=== PATIENT | female | born 1940 | race Two or more races ===

== ENCOUNTER 2022-03-05 19:27 | Outpatient (CLI) | payer MEDICARE, OTHER | END 2022-03-05 19:28 | disposition critical access hospital (66) | LOC: EMS 19:27 | DX: R06.02 Shortness of breath (principal); R07.89 Other chest pain; R10.812 Left upper quadrant abdominal tenderness | CPT/HCPCS: A0425; A0427 ==

== ENCOUNTER 2022-03-05 19:45 | Inpatient (IN) | payer MEDICARE, OTHER ==
--- NOTE | 2022-03-05 20:36 | ED Physician Documentation ---
PD HPI CHEST PAIN - Stated complaint Stated Complaint: SOA/CHEST TIGHTNESS - Chief complaint Chief Complaint: Cardiac - History obtained from History obtained from: Patient - Additional information Additional information: Patient is an 82-year-old female with a history significant for dementia, GERD,Peripheral neuropathy presenting for evaluation of midsternal chest pressure that started at dinnertime at 530. History is obtained from patient as well as daughter as patient is not entirely reliable given her history of dementia. Per the daughter, patient was sitting at the dinner table when she s tarted complaining of pain in the middle of her chest. She appeared to have shallow breathing at the time. As she had never had similar episodes, they called 911. She was given a sublingual nitro with resolution of her pain. Per the patient and her daughter, she was doing well earlier today with no recent episodes of chest pain, difficulty breathing, coughing, fever. No increase in leg swelling.No history of hypertension, diabetes or hyperlipidemia, known coronary artery disease. Review of Systems Constitutional: denies: Fever Nose: denies: Congestion Cardiac: reports: Chest pain / pressure. denies: Palpitations Respiratory: reports: Dyspnea. denies: Cough GI: denies: Abdominal Pain, Vomiting, Constipation, Diarrhea : denies: Dysuria Skin: denies: Rash Musculoskeletal: denies: Back pain Neurologic: denies: Syncope PD PAST MEDICAL HISTORY - Allergies Allergies/Adverse Reactions: Allergies Allergy/AdvReac Type Severity Reaction Status Date / Time aspirin Allergy Anaphylaxis Verified 03/05/22 19:51 PD ED PE NORMAL - General General: No acute distress, Well developed/nourished - HEENT HEENT: Atraumatic, Moist mucous membranes - Neck Neck: Supple, no meningeal sign - Cardiac Cardiac: No murmur, Strong equal pulses, Other (Tachycardic,Irregularly irregular) - Respiratory Respiratory: No respiratory distress, Clear bilaterally - Abdomen Abdomen: Normal bowel sounds, Soft, Non distended, Other (Mild epigastric tenderness) - Derm Derm: Normal color, No rash - Extremities Extremities: No calf tenderness / cord - Neuro Neuro: Normal speech - Psych Psych: Normal mood Results - Vitals Vitals: Vital Signs - 24 hr 03/05/22 03/05/22 03/05/22 19:51 20:06 21:12 Temperature 36.5 C Heart Rate 115 H 104 H 94 Respiratory 22 22 24 Rate Blood Pressure 134/71 H 112/78 107/68 O2 Saturation 93 91 L 95 03/05/22 03/05/22 23:00 23:19 Temperature Heart Rate 90 105 H Respiratory 24 24 Rate Blood Pressure 143/99 H 143/99 H O2 Saturation 96 92 Oxygen O2 Source Nasal cannula - EKG (time done) 2001 Rate: Rate (enter#) (104) Rhythm: Atrial fibrillation [place]: Normal Ischemia: No: ST elevation c/w ischemia Other comments: Other comments Compare to prior EKG: Old EKG unavailable - Labs Labs: Laboratory Tests 03/05/22 03/05/22 03/05/22 20:34 20:34 20:34 WBC 7.3 RBC 3.89 L Hgb 11.6 L Hct 35.8 L MCV 92.0 MCH 29.8 MCHC 32.4 RDW 13.6 Plt Count 272 MPV 8.8 Neut # (Auto) 4.9 Lymph # (Auto) 1.5 [place] # (Auto) 0.7 Eos # (Auto) 0.2 Baso # (Auto) 0.0 Absolute Nucleated RBC 0.00 Nucleated RBC % 0.0 APTT D-Dimer Sodium 141 Potassium 3.9 Chloride 106 Carbon Dioxide 26 Anion Gap 9.0 BUN 24 H Creatinine 1.0 Estimated GFR (MDRD) 53 L Glucose 121 H Calcium 8.9 Total Bilirubin 0.3 AST 20 ALT 15 Alkaline Phosphatase 77 Troponin I High Sens 802.1 H* B-Natriuretic Peptide Total Protein 7.7 Albumin 3.6 Globulin 4.1 Albumin/Globulin Ratio 0.9 L Lipase 33 SARS-CoV-2 (PCR) 03/05/22 03/05/22 03/05/22 20:34 20:34 20:45 WBC RBC Hgb Hct MCV MCH MCHC RDW Plt Count MPV Neut # (Auto) Lymph # (Auto) [place] # (Auto) Eos # (Auto) Baso # (Auto) Absolute Nucleated RBC Nucleated RBC % APTT D-Dimer > 1050.0 H Sodium Potassium Chloride Carbon Dioxide Anion Gap BUN Creatinine Estimated GFR (MDRD) Glucose Calcium Total Bilirubin AST ALT Alkaline Phosphatase Troponin I High Sens B-Natriuretic Peptide 72 Total Protein Albumin Globulin Albumin/Globulin Ratio Lipase SARS-CoV-2 (PCR) NOT DETECTED 03/05/22 23:00 WBC RBC Hgb Hct MCV MCH MCHC RDW Plt Count MPV Neut # (Auto) Lymph # (Auto) [place] # (Auto) Eos # (Auto) Baso # (Auto) Absolute Nucleated RBC Nucleated RBC % APTT 31.1 D-Dimer Sodium Potassium Chloride Carbon Dioxide Anion Gap BUN Creatinine Estimated GFR (MDRD) Glucose Calcium Total Bilirubin AST ALT Alkaline Phosphatase Troponin I High Sens B-Natriuretic Peptide Total Protein Albumin Globulin Albumin/Globulin Ratio Lipase SARS-CoV-2 (PCR) PD MEDICAL DECISION MAKING - ED course Complexity details: reviewed results, re-evaluated patient, d/w patient, d/w family ED course: 2121 -Patient denies current shortness of breath or chest pain. Reviewed abnormal labs including elevated troponin and D-dimer.Plan for CT angio to evaluate for pulmonary embolism. Discussed that if CT angio is negative for pulmonary embolism, The labs are also suggesting that patient is having a heart attack. Discussed options regarding cardiac catheterization versus medical management. Patient does not have any advanced directives per the daughter. At this time they are uncertain If they want to pursue all medical options including cardiac catheterization Or not. 2300 - D/W Dr. Arguello Reviewed pertinent imaging and labs including concerns for right heart strain. Agrees with plan for heparin drip and will admit the patient. - Critical Care Time(min): 31 Departure - Departure Disposition: 66 [facility] DC/Xfer Clinical Impression: Bilateral pulmonary embolism, Elevated troponin, Atrial dysrhythmia Condition: Serious Discharge Date/Time: 03/06/22 01:51
[2022-03-05 20:40] LABS: BASOPHILS % (AUTO) 0.4 %; EOSINOPHILS # (AUTO) 0.2 10^3/uL (0.0-0.7); EOSINOPHILS % (AUTO) 2.6 %; HCT - HEMATOCRIT 35.8 % (37.0-47.0); HGB - HEMOGLOBIN 11.6 g/dL (12.0-16.0); LYMPHOCYTES # (AUTO) 1.5 10^3/uL (1.5-3.5); LYMPHOCYTES % (AUTO) 20.1 %; MEAN CORPUSCULAR HEMOGLOBIN 29.8 pg (27.0-31.0); MEAN CORPUSCULAR HGB CONC 32.4 g/dL (32.0-36.0); MEAN PLATELET VOLUME 8.8 fL (7.9-10.8); MONOCYTES # (AUTO) 0.7 10^3/uL (0.0-1.0); MONOCYTES % (AUTO) 10.1 %; NEUTROPHILS # (AUTO) 4.9 10^3/uL (1.5-6.6); NEUTROPHILS % (AUTO) 66.7 %; PLT - PLATELET COUNT 272 10^3/uL (130-450); RED BLOOD COUNT 3.89 10^6/uL (4.20-5.40); RED CELL DISTRIBUTION WIDTH 13.6 % (12.0-15.0); WHITE BLOOD COUNT 7.3 x10^3/uL (4.8-10.8)
[2022-03-05 21:00] LABS: ALBUMIN 3.6 g/dL (3.2-5.5); ALBUMIN/GLOBULIN RATIO 0.9 (1.0-2.2); BILIRUBIN,TOTAL 0.3 mg/dL (0.2-1.0); CALCIUM 8.9 mg/dL (8.5-10.3); POTASSIUM 3.9 mmol/L (3.5-5.0); TOTAL PROTEIN 7.7 g/dL (6.7-8.2)
[2022-03-05] MEDS ORDERED: IOPAMIDOL-300 100 ML VIAL ONE (22:18)
[2022-03-05] MEDS ORDERED: IOPAMIDOL-300 100 ML VIAL IVP ONE (22:21)
--- NOTE | 2022-03-05 22:45 | CT Report ---
PROCEDURE: ANGIO CHEST W/WO INDICATIONS: CP/SOB; elevated ddimer/ rule out PE CONTRAST: IV CONTRAST: Isovue 300 ml: 80 PO CONTRAST: *NO PO CONTRAST TECHNIQUE: After the administration of intravenous contrast, 2 mm axial images were acquired from the pulmonary apices to the posterior costophrenic angles during the arterial phase. In addition, 1 mm lung kernel and 5 mm soft tissue kernel reconstructions were performed. 3-dimensional coronal oblique maximum int ensity projection (MIP) reformats, 8 mm axial MIP, and 5 mm coronal and sagittal MPR reformats were t hen performed through the thorax. For radiation dose reduction, the following was used: automated exp osure control, adjustment of mA and/or kV according to patient size. COMPARISON: None. FINDINGS: Image quality: There is mild motion artifact. Pulmonary arteries: There are extensive filling defects within the pulmonary arteries bilaterally inc luding the right lobar pulmonary artery extending into segmental and subsegmental branches within the right upper, middle, and lower lobes. There are also filling defects within the left lower lobe pulm onary artery extending into segmental and subsegmental branches. The pulmonary arteries are enlarged, with the main pulmonary artery measuring up to 3.1 cm. There is suspected mild leftward deviation of the interventricular septum. Findings are suggestive of developing right heart strain. Lungs and pleura: There is mild dependent atelectasis bilaterally. No definite pulmonary infarcts. No pleural effusions or pneumothorax. Central and peripheral airways are patent. Mediastinum: Heart size is normal, without pericardial effusion. No mediastinal or hilar adenopathy . Thoracic aorta is normal in caliber and enhancement. There is a moderate-sized hiatal hernia. Bones and chest wall: No suspicious bony lesions. There are mild superior endplate compression defo rmities of the L1 and L2 to vertebral bodies, with loss of height of up to approximately 50% at L1. F indings are of indeterminate acuity. No retropulsed bony fragments. No axillary or supraclavicular ad enopathy. Abdomen: Visualized upper abdomen demonstrates a prominent cyst within the right hepatic lobe. IMPRESSION: 1. Extensive bilateral pulmonary embolism as described with suspicion of developing right heart strai n. Findings discussed with Dr. Posada on 03/05/2022 at 10:38 PM. 2. Moderate size hiatal hernia. 3. Superior endplate compression deformities of L1 and L2 vertebral bodies of indeterminate acuity. Reviewed by: Alejandro Bennett MD on 03/05/2022 10:44 PM PDT Approved by: Alejandro Bennett MD on 03/05/2022 10:44 PM PDT Station ID: [id number]
[2022-03-05] MEDS ORDERED: HEPARIN 25000UNITS/500ML (D5W) 25,000 UNIT/500 ML BAG IV SCH (23:00)
--- NOTE | 2022-03-05 23:05 | XRAY Report ---
PROCEDURE: Chest 1 View X-Ray INDICATIONS: Chest Pain TECHNIQUE: One view of the chest was acquired. COMPARISON: None. FINDINGS: Surgical changes and devices: None. Lungs and pleura: No pleural effusions or pneumothorax. Lungs are clear. Mediastinum: Mediastinal contours appear normal. Heart size is normal. Bones and chest wall: No suspicious bony lesions. Overlying soft tissues appear unremarkable. IMPRESSION: 1. No acute cardiopulmonary disease. Reviewed by: Alejandro Bennett MD on 03/05/2022 11:04 PM PDT Approved by: Alejandro Bennett MD on 03/05/2022 11:04 PM PDT Station ID: [id number]
[2022-03-06] MEDS ORDERED: ACETAMINOPHEN 325 MG TABLET PO PRN (00:24)
[2022-03-06] MEDS ORDERED: ONDANSETRON 4 MG/2 ML VIAL IVP PRN (00:24)
[2022-03-06] MEDS ORDERED: SODIUM CHLORIDE FLUSH 0.9% 10 ML SYRINGE IVP PRN (00:24)
--- NOTE | 2022-03-06 00:38 | HISTORY & PHYSICAL EXAMINATION ---
Chief Complaint - Chief Complaint Chief Complaint: SOB and chest pain History of Present Illness - Admitted From Admitted From:: ED - History Obtained From History obtained from: ED provider and from daughter, at bedside - History of Present Illness HPI Comment/Other: This is an 82-year-old female of descent with a history of dementia, peripheral neuropathy and indigestion. Patient and family just moved here from [place] 2.5 mos ago, has no PCP yet, and she lives with daughter and son-in-law. The patient was having dinner and had complaint of chest pain and the daughter noticed she was short of breath with rapid and shallow breathing. She has never had chest pain or any lung or heart problems. An ambulance was called. She received sublingual nitroglycerin with relief of the chest pain. Her oxygen saturation was normal. She was brought to the ED where she was reported to be in new onset of A. fib at rates of 115. Oxygen saturation was initially 95% on room air then dropped to 91%. The patient's troponin was 800 and D-dimer was >1000. She underwent a CTA of the chest that shows multiple bilateral pulmonary emboli and evidence of right heart strain by CT scanning. The daughter reports that the patient is sedentary, only walks around her house minimally and needs to use a walker, does not go out of the house. The patient has been started on IV heparin per protocol for DVT and PE and the ED provider called the Hospitalist team for admission to manage her PE with large clot burden causing right heart strain, and her new onset of A. fib with rapid rate with elevated cardiac biomarkers. The CODE STATUS was discussed with the daughter who did not have any prior knowledge of what her mother would want, and patient cannot decide with her dementia. She will therefore be a full code by default. 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 - Past Surgical History Other past surgical history: Unknown d/t dementia - Family & Social History Family History: Mother: (unknown details due to pt's dementia), Father: , Other family: Alive and Well (3 children are healthy) Family History Comment/Other: According to the patient's daughter, there are no inheritable family diseases (a negative family history). Living arrangement: At home Living Situation: With family Social History Notes: The patient does not smoke and never smoked, drinks no alcohol, uses no drugs. Patient no longer drives because of her dementia. The daughter administers her medications and sees that she swallows them - Substance History Use: Uses substance without health or social issues: NONE - POLST Patient has POLST: No Meds/Allgy - Allergies Allergies/Adverse Reactions: Allergies Allergy/AdvReac Type Severity Reaction Status Date / Time aspirin Allergy Anaphylaxis Verified 03/05/22 19:51 Review of Systems - Gastrointestinal Gastrointestinal: reports: Other (Indigestion Hx) - Neurological Neurological: reports: Other (Poor memory) - All Other Systems All Other Systems: reports: Other (Very few details regarding symptoms can be obtained because of this patient's significant dementia. There is no med list that is known.) Exam - Vital Signs Reviewed Vital Signs: Yes Vital Signs: Vital Signs x48h Temp Pulse Resp BP Pulse Ox 03/05/22 23:19 105 H 24 143/99 H 92 03/05/22 23:00 90 24 143/99 H 96 03/05/22 21:12 94 24 107/68 95 03/05/22 20:06 104 H 22 112/78 91 L 03/05/22 19:51 36.5 C 115 H 22 134/71 H 93 - Physical Exam General Appearance: positive: No acute distress, Other (Obese, well kempt and coiffed with make-up on.) Eyes Bilateral: positive: Normal inspection ENT: positive: ENT inspection nml Neck: positive: Nml inspection Respiratory: positive: No respiratory distress, Breath sounds nml Cardiovascular: positive: Irregularly irregular (Very distant heart sounds due to large pendulous breasts) Abdomen: positive: Non-tender, No distention Skin: positive: Warm, Dry Extremities: positive: Non-tender, No pedal edema Neurologic/Psychiatric: positive: Disoriented to place, Other (Oriented only to self. Nonfocal motor exam) Conclusion/Plan - Problem List (1) Bilateral pulmonary embolism Conclusion/Plan: A large clot burden is present by CT imaging. There is also evidence of right heart strain by CT imaging. Etiology may be DVTs from being sedentary. Will start the patient on anticoagulants; IV heparin was chosen by the ED provider. We will transition to an oral anticoagulant. Will monitor her on telemetry. Cardiac Echo would be beneficial, however no Echo service is available at this time in our hospital. A work-up for DVT will be considered Will assess the patient's oximetry at rest and with activity and ascertain that she has no further chest pain before she is discharged on anticoagulants. (2) New onset atrial fibrillation Conclusion/Plan: This atrial tachy-dysrhythmia is very likely caused by the pulmonary pathology of bilateral PEs. Will monitor on telemetry. Will adjust medications if needed to keep heart rate under 100. Will begin anticoagulation for stroke prophylaxis, which is already needed for P E treatment. An Echocardiogram would also be indicated (3) Elevated troponin Conclusion/Plan: This very elevated troponin may be a sign of RV infarction from the strain or PEs versus LV ischemia/NSTEMI. Will repeat serial troponins to assess where they peak. Will try to obtain an Echocardiogram to evaluate LV and RV function. Will plan anticoagulation as described above. Will consider aspirin and statin treatment as well (4) Dementia Conclusion/Plan: Will await for pharmacy to obtain a reconciled medication list, currently two medications at home were being taken for memory, according to what we know - Lab Results Fish Bones: 03/05/22 20:34 03/05/22 20:34 - Diagnostic Imaging Results Diagnostic Imaging Results: positive: Final report reviewed - EKG Results EKG Interpreted Independently: Yes EKG Comparison: Old EKG unavailable EKG Findings: Multifocal atrial tachycardia, rate 107, diffuse nonspecific ST and T wave changes. - Other Other Results/Comments: Attestation: The patient is expected to be discharged or transferred to another facility for 96 hours: Yes.
[2022-03-06] MEDS ORDERED: HEPARIN 25000UNITS/500ML (D5W) 25,000 UNIT/500 ML BAG IV SCH (01:00)
[2022-03-06] MEDS: SODIUM CHLORIDE FLUSH 0.9% 10 ML SYRINGE IVP SCH ×4 (01:51→23:35)
[2022-03-06 05:26] LABS: CALCIUM 8.7 mg/dL (8.5-10.3); CREATININE 0.7 mg/dL (0.4-1.0); POTASSIUM 3.5 mmol/L (3.5-5.0)
[2022-03-06] MEDS ORDERED: POTASSIUM CHLORIDE 20 MEQ TABLET PO ONE (07:21)
[2022-03-06] MEDS: ENOXAPARIN 80 MG/0.8 ML SYRINGE SUBQ SCH ×2 (08:27→21:23)
[2022-03-06 08:54] LABS: HCT - HEMATOCRIT 34.9 % (37.0-47.0); HGB - HEMOGLOBIN 11.5 g/dL (12.0-16.0); MEAN CORPUSCULAR HEMOGLOBIN 30.2 pg (27.0-31.0); MEAN CORPUSCULAR VOLUME 91.6 fL (81.0-99.0); MEAN PLATELET VOLUME 9.6 fL (7.9-10.8); RED BLOOD COUNT 3.81 10^6/uL (4.20-5.40); RED CELL DISTRIBUTION WIDTH 13.7 % (12.0-15.0); WHITE BLOOD COUNT 7.3 x10^3/uL (4.8-10.8)
[2022-03-06] MEDS ORDERED: APIXABAN 5 MG TABLET PO SCH (09:00)
--- NOTE | 2022-03-06 10:48 | PHARMACY PROGRESS NOTE ---
- Best Possible Medication History Admit Date and Time: 03/06/22 0024 Processed by: Pharmacy Medication History completed: Yes Secondary Source(s): Prescription bottles, Insurance records As the person ultimately responsible for medication therapy, providers are able to order a medication from an existing home medication list in [facility] via the "Reconcile Routine" prior to Confirmation of that medication by learning support teacher. Such practice is discouraged except when the physician, in their clinical judgment, deems that a medical need exists for a medication without regard to previous use.
--- NOTE | 2022-03-06 11:50 | Ultrasound Report ---
PROCEDURE: Duplex Ext Veins Bilateral INDICATIONS: TANNA MACHUCA pulmonary embolism, lower extremity edema TECHNIQUE: Real-time imaging, as well as color and pulse Doppler interrogation, were performed of the deep veins of both legs from the inguinal ligament to the popliteal fossa. COMPARISON: None. FINDINGS: Nonocclusive filling defect is seen within the left popliteal vein with incomplete compress ibility. The left calf veins are not well seen due to overlying soft tissue edema. The remaining deep veins are normally compressible, and free of intraluminal thrombus. Color and pul se Doppler demonstrate normal phasic intravascular flow. There is normal augmentation response to di stal compression maneuver. IMPRESSION: 1.Nonocclusive deep venous thrombus within the left popliteal vein. Left calf veins are not well visu alized due to overlying edema. 2.No right-sided deep venous thrombosis. Concordant preliminary findings were conveyed to Dr. Machuca by the agronomy manager on 03/06/2022 at 9:30 A M. Reviewed by: Serafin Villanueva MD on 03/06/2022 11:48 AM PDT Approved by: Serafin Villanueva MD on 03/06/2022 11:48 AM PDT Station ID: [id number]
--- NOTE | 2022-03-06 17:42 | PROVIDER PROGRESS NOTE ---
Hospitalist Cross-cover Note - Cross-Cover Note Cross-Cover Note: Patient reports feeling much better today. Denies any chest pain or dyspnea. Daughter is present at bedside. We discussed the duplex confirmed a DVT and that the patient has bilateral pulmonary embolism. We discussed that she is now on Lovenox as the heparin required multiple lab draws and due to patient's dementia, she did not enjoy this. 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 If this shows evidence of right heart strain we could discuss with interventional radiology a different facility regarding different management such as localized thrombolysis although I did discuss this with likely not be necessary despite the significant clot burden as the patient has been hemodynamically stable. Nonetheless, we will review potential treat ment options based on the echocardiogram. In the interim, we will keep her on Lovenox and continue to monitor on telemetry. She has been in a sinus rhythm with frequent PACs and at times it has been a multifocal atrial tachycardia. Her heart rate has been in the 90s and she continues to require 1 L of oxygen.
[2022-03-06] MEDS ORDERED: DONEPEZIL 5 MG TABLET PO SCH (21:00)
[2022-03-06] MEDS: GABAPENTIN 100 MG CAPSULE PO SCH (21:11)
[2022-03-06] MEDS: risperiDONE 0.25 MG TABLET PO SCH (21:11)
[2022-03-06] MEDS: risperiDONE 1 MG TABLET PO SCH (21:11)
[2022-03-06] MEDS: ESCITALOPRAM 10 MG TABLET PO SCH (21:11)
--- NOTE | 2022-03-06 21:42 | PROVIDER PROGRESS NOTE ---
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 The Echo showed: Mildly dilated left atrium and right atrium. Smalll left ventricular size and normal wall thickness. Flattened septum with paradoxical septal motion consistent with right ventricular strain. Normal LV systolic function with EF 55-60%. Probable LV diastolic dysfunction is present. Right ventricle severely dilated, normal RV wall thickness, and moderately depressed RV contractility. There are mild sclerotic changes of the mitral annulus and aortic valve. Color Doppler of the valves was not performed. No pericardial effusion seen. The patient was having mild pleuritic, central chest pain before I started the Echo exam. 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 Volume depletion with small LV size, normal LVEF 55-60%, probable LV diastolic dysfunction present. DVT, likely from sedentary life style plus recent [place] air travel. Plan: Anticoagulation as already planned. Encourage po fluids was ordered. Meds at discharge for pleuritic chest pain will be needed. Start PT and discourage a sedentary lifestyle. Will order PT and OT evals.
[2022-03-07 05:30] LABS: CALCIUM 8.5 mg/dL (8.5-10.3); CREATININE 0.6 mg/dL (0.4-1.0); POTASSIUM 3.7 mmol/L (3.5-5.0)
[2022-03-07] MEDS ORDERED: LACTATED RINGERS 1,000 ML IV ONE (07:25)
[2022-03-07] MEDS: ENOXAPARIN 80 MG/0.8 ML SYRINGE SUBQ SCH ×2 (08:28→21:08)
[2022-03-07] MEDS: DONEPEZIL 5 MG TABLET PO SCH (08:28)
[2022-03-07] MEDS: SODIUM CHLORIDE FLUSH 0.9% 10 ML SYRINGE IVP SCH ×3 (08:28→23:32)
[2022-03-07] MEDS: GABAPENTIN 100 MG CAPSULE PO SCH ×2 (08:28→18:32)
[2022-03-07] MEDS ORDERED: ESCITALOPRAM 10 MG TABLET PO SCH (09:00)
--- NOTE | 2022-03-07 09:11 | PROVIDER PROGRESS NOTE ---
Subjective - Prog Note Date Prog Note Date: 03/07/22 - Subjective Subjective: Patient currently denies any chest pain or dyspnea. Her daughter is at bedside reports patient finally got to sleep last night after she had been awake the previous 24 hours. Current Medications - Current Medications Current Medications: Vital Signs - 24 hr 03/06/22 03/06/22 03/06/22 11:03 16:10 20:15 Temperature 36.4 C L 36.4 C L 36.4 C L Heart Rate [ 91 109 H 95 Brachial] Respiratory 18 24 27 H Rate Blood Pressure 104/63 109/65 145/81 H [Right Brachial artery] O2 Saturation 92 96 93 03/07/22 03/07/22 03/07/22 00:36 05:00 08:42 Temperature 36.6 C 36.7 C 36.5 C Heart Rate [ 75 74 77 Brachial] Respiratory 18 19 18 Rate Blood Pressure 85/53 L 97/51 L 104/61 [Right Brachial artery] O2 Saturation 96 96 95 Oxygen O2 Source Nasal cannula Objective - Vital Signs/Intake & Output Reviewed Vital Signs: Yes Vital Signs: Vital Signs x48h Temp Pulse Resp BP Pulse Ox 03/07/22 08:42 36.5 C 77 18 104/61 95 03/07/22 05:00 36.7 C 74 19 97/51 L 96 Intake & Output: Intake & Output 03/04/22 03/05/22 03/06/22 03/07/22 23:59 23:59 23:59 23:59 Intake Total 776.12 0 Balance 776.12 0 - Objective General Appearance: positive: No acute distress, Alert Eyes Bilateral: positive: Normal inspection, No scleral icterus ENT: negative: ENT inspection nml Neck: positive: Nml inspection Respiratory: positive: No respiratory distress. negative: Wheezes, Rales Cardiovascular: positive: Regular rate & rhythm, No murmur. negative: Tachycardia Abdomen: positive: Non-tender, No distention. negative: Tenderness Skin: positive: Warm, Dry Extremities: positive: No pedal edema. negative: Calf tenderness Neurologic/Psychiatric: negative: Disoriented to person - Lab Results Fish Bones: 03/07/22 09:35 03/07/22 05:06 Other Labs: Lab Results x24hrs 03/07/22 03/06/22 Range/Units 05:06 10:47 Sodium 140 (135-145) mmol/L Potassium 3.7 (3.5-5.0) mmol/L Chloride 107 (101-111) mmol/L Carbon Dioxide 25 (21-32) mmol/L Anion Gap 8.0 (6-13) BUN 22 H (6-20) mg/dL Creatinine 0.6 (0.4-1.0) mg/dL Estimated GFR (MDRD) 96 (>89) Glucose 102 H (70-100) mg/dL Calcium 8.5 (8.5-10.3) mg/dL Troponin I High Sens 361.2 H* (2.3-14.8) ng/L Assessment/Plan - Problem List (1) Bilateral pulmonary embolism Impression: CTA revealed bilateral pulmonary embolism that is worse on the right. She was hypoxic requiring a liter of oxygen but now she is on room air. Limited echocardiogram was performed yesterday evening by the advertising project manager which did show evidence of right heart strain. The patient's blood pressure was low overnight with systolics in the 80s to 90s. This morning it has improved to the low 100s without any intervention. I discussed with the patient's daughter at bedside that the hypotension may potentially be related to the pulmonary embolism but given the improvement, we can continue to monitor for the time being. I discussed that the other option is to consider transfer to higher level of care for consideration of thrombolytics. I discussed that given her blood pressure is improved and currently in the 100s that intervention likely would not be necessary. We agreed to recheck her blood pressure in a few hours and if she is hypotensive then to consider a higher level of care but if her blood pressure stable they will continue anticoagulation with Lovenox. At this time we will continue therapeutic Lovenox at 80 mg twice a day. We will no longer monitor on telemetry as patient underlying dementia she keeps removing the leads. (2) Atrial dysrhythmia Impression: She initially had multifocal atrial tachycardia which was likely due to pulmonary embolism. It is much improved with rates in the 70s. We will discontinue telemetry as she has been removing the leads due to underlying dementia. (3) Elevated troponin Impression: This is likely demand ischemia secondary to the pulmonary embolism. Echocardiog carolyn revealed a preserved ejection fraction without evidence of wall motion abnormalities. (4) Dementia Impression: Stable. We are continuing her home risperidone and Aricept.
[2022-03-07 09:39] LABS: BASOPHILS % (AUTO) 0.6 %; EOSINOPHILS # (AUTO) 0.2 10^3/uL (0.0-0.7); EOSINOPHILS % (AUTO) 3.2 %; HCT - HEMATOCRIT 35.1 % (37.0-47.0); HGB - HEMOGLOBIN 11.2 g/dL (12.0-16.0); LYMPHOCYTES % (AUTO) 31.4 %; MEAN CORPUSCULAR HEMOGLOBIN 29.2 pg (27.0-31.0); MEAN CORPUSCULAR HGB CONC 31.9 g/dL (32.0-36.0); MEAN CORPUSCULAR VOLUME 91.6 fL (81.0-99.0); MONOCYTES # (AUTO) 0.6 10^3/uL (0.0-1.0); MONOCYTES % (AUTO) 8.9 %; NEUTROPHILS # (AUTO) 3.5 10^3/uL (1.5-6.6); NEUTROPHILS % (AUTO) 55.7 %; PLT - PLATELET COUNT 292 10^3/uL (130-450); RED BLOOD COUNT 3.83 10^6/uL (4.20-5.40); RED CELL DISTRIBUTION WIDTH 13.9 % (12.0-15.0); WHITE BLOOD COUNT 6.2 x10^3/uL (4.8-10.8)
[2022-03-07] MEDS: ESCITALOPRAM 10 MG TABLET PO SCH (18:32)
[2022-03-07] MEDS: risperiDONE 1 MG TABLET PO SCH (18:33)
[2022-03-07] MEDS: risperiDONE 0.25 MG TABLET PO SCH (18:33)
[2022-03-08 05:54] LABS: BASOPHILS % (AUTO) 0.3 %; EOSINOPHILS # (AUTO) 0.3 10^3/uL (0.0-0.7); EOSINOPHILS % (AUTO) 4.8 %; HCT - HEMATOCRIT 32.5 % (37.0-47.0); HGB - HEMOGLOBIN 10.6 g/dL (12.0-16.0); LYMPHOCYTES % (AUTO) 32.1 %; MEAN CORPUSCULAR HGB CONC 32.6 g/dL (32.0-36.0); MEAN CORPUSCULAR VOLUME 92.1 fL (81.0-99.0); MEAN PLATELET VOLUME 9.8 fL (7.9-10.8); MONOCYTES # (AUTO) 0.5 10^3/uL (0.0-1.0); MONOCYTES % (AUTO) 8.7 %; NEUTROPHILS # (AUTO) 3.3 10^3/uL (1.5-6.6); NEUTROPHILS % (AUTO) 53.8 %; PLT - PLATELET COUNT 293 10^3/uL (130-450); RED BLOOD COUNT 3.53 10^6/uL (4.20-5.40); RED CELL DISTRIBUTION WIDTH 14.1 % (12.0-15.0); WHITE BLOOD COUNT 6.1 x10^3/uL (4.8-10.8)
[2022-03-08 05:57] LABS: CALCIUM 8.5 mg/dL (8.5-10.3); CREATININE 0.6 mg/dL (0.4-1.0); POTASSIUM 3.9 mmol/L (3.5-5.0)
[2022-03-08] MEDS: SODIUM CHLORIDE FLUSH 0.9% 10 ML SYRINGE IVP SCH (08:17)
[2022-03-08] MEDS: GABAPENTIN 100 MG CAPSULE PO SCH (08:17)
[2022-03-08] MEDS: DONEPEZIL 5 MG TABLET PO SCH (08:17)
[2022-03-08] MEDS: ENOXAPARIN 80 MG/0.8 ML SYRINGE SUBQ SCH (08:18)
[2022-03-08] MEDS ORDERED: DOCUSATE SODIUM 100 MG CAPSULE PO SCH (10:00)
--- NOTE | 2022-03-08 11:17 | XRAY Report ---
PROCEDURE: Abdomen 1 View X-Ray INDICATIONS: Constipation. Pain. TECHNIQUE: One view of the abdomen acquired. COMPARISON: None. FINDINGS: Surgical changes and devices: None. Bowel: Bowel gas pattern is normal. Moderate amount stool in colon. Soft tissues: No suspicious abdominal calcifications. Visualized solid organ contours appear normal in size. Bones: No suspicious bony lesions. Degenerative and postsurgical changes in the lower lumbar spine. Moderate DJD of the sacroiliac joints bilaterally. IMPRESSION: Moderate amount of stool in colon. Reviewed by: Earlene Arvizu MD on 03/08/2022 10:16 AM PRINCESS Approved by: Earlene Arvizu MD on 03/08/2022 10:16 AM PRINCESS Station ID: [id number]
--- NOTE | 2022-03-08 13:21 | Discharge Plan ---
Discharge Plan Problem Reviewed?: Yes Disposition: Home, Self Care Condition: Stable Prescriptions: Apixaban [Eliquis] 10 mg PO BID 7 Days #28 tablet Apixaban [Eliquis] 5 mg PO BID 30 Days #60 tablet Diet: Regular Activity Restrictions: Activity as Tolerated Instruction Topics: Apixaban oral tablets, Embolism Pulmonary Dc Health Concerns: You were admitted to the hospital because of blood clots in your lungs. This likely occurred because of the recent flight from [place] and the fact that you are not very active. We treated you with blood thinners and your vital signs have been stable. You are no longer requiring oxygen. You were also found to be constipated. We tried to disimpact you while here in the hospital. We recommend taking Colace as a stool softener and he may also consider taking MiraLAX as needed. Please drink plenty of fluids and try to be as active as possible. Plan of Treatment: Please take Eliquis 10 mg twice a day for 1 week. Your first dose will be tonight. The last dose will be on the . After that please take 5 mg twice daily. This will be for at least 6 months. Recommend following up with your primary care physician to discuss long-term use of the Eliquis. You may consider a referral to a retail experience specialist for a second opinion. You may take Colace as a stool softener and use MiraLAX as needed for constipation. Care Goals: The goal is to remain on the blood thinners to prevent further clot formation. Assessment: The patient's family expressed understanding of the treatment plan. Additional Instructions or Follow Up instructions: Please follow-up with her primary care physician in 1 to 2 weeks. Please be aware that Eliquis can increase your risk of bleeding and if there is any evidence of blood in your stool then please return to the emergency department. If you also have a fall and have trauma to your head then please come to the emergency department. No Smoking: If you smoke, Please STOP! Call for help.
--- NOTE | 2022-03-08 13:23 | DISCHARGE SUMMARY ---
Discharge Summary Admit Date: 03/06/22 Discharge Date: 03/08/22 Discharging Provider: Fred Cannon Code Status: Attempt Resuscitation Condition at Discharge: Stable Discharge Disposition: 01 Home, Self Care - DIAGNOSES Admission Diagnoses: Bilateral pulmonary embolism New onset atrial fibrillation Elevated troponin Dementia Discharge Diagnoses with Status of Each Condition: Bilateral pulmonary embolism - improved. Atrial dysrhythmia - resolved. Elevated troponin - improved. Dementia - stable. Constipation - improved. - HPI History of Present Illness: H&P per Dr. Ratliff: This is an 82-year-old female of descent with a history of dementia, peripheral neuropathy and indigestion. Patient and family just moved here from [place] 2.5 mos ago, has no PCP yet, and she lives with daughter and son-in-law. The patient was having dinner and had complaint of chest pain and the daughter noticed she was short of breath with rapid and shallow breathing. She has never had chest pain or any lung or heart problems. An ambulance was called. She received sublingual nitroglycerin with relief of the chest pain. Her oxygen saturation was normal. She was brought to the ED where she was reported to be in new onset of A. fib at rates of 115. Oxygen saturation was initially 95% on room air then dropped to 91%. The patient's troponin was 800 and D-dimer was >1000. She underwent a CTA of the chest that shows multiple bilateral pulmonary emboli and evidence of right heart strain by CT scanning. The daughter reports that the patient is sedentary, only walks around her house minimally and needs to use a walker, does not go out of the house. The patient has been started on IV heparin per protocol for DVT and PE and the ED provider called the Hospitalist team for admission to manage her PE with large clot burden causing right heart strain, and her new onset of A. fib with rapid rate with elevated cardiac biomarkers. The CODE STATUS was discussed with the daughter who did not have any prior knowledge of what her mother would want, and patient cannot decide with her dementia. She will therefore be a full code by default. - HOSPITAL COURSE Hospital Course: She was admitted to the floor for bilateral pulmonary embolism. She initially hypoxic requiring 2 L of oxygen. We had initially started her on heparin but due to her dementia, she did not like the frequent blood draws for PTT's and was becoming agitated at times and so we switched her to Lovenox 80 mg twice daily. Our crawler dragline operator did perform a limited bedside echocardiogram which did suggest evidence of right heart strain. Fortunately, she was hemodynamically stable throughout this admission. She initially had multifocal atrial tachycardia but this resolved within the first 24 hours and she has been in sinus rhythm with occasional PACs. Her blood pressure has been stable in the low 100s systolic after a brief episode in the 80s and low 90s. She was weaned off of the oxygen and an exercise desaturation test revealed she did not require oxygen. It was noted that she was constipated and abdominal x-ray revealed moderate stool burden. She was disimpacted successfully. Colace was recommended on discharge. The patient was discharged home in a stable condition. She was asked to take Eliquis 10 mg twice daily for 1 week followed by 5 mg twice daily for at least 6 months. It was recommended that she follow-up with her primary care physician to discuss long-term anticoagulation and to consider hematology consult. It was felt that this PE was likely provoked given her recent flight but she is sedentary overall and not very active which does increase her risk of thromboembolism. A duplex obtained did also confirm a nonocclusive DVT in the left lower extremity. The plan was discussed with the patient's daughter as the patient does have dementia. - ALLERGIES Allergies/Adverse Reactions: Allergies Allergy/AdvReac Type Severity Reaction Status Date / Time aspirin Allergy Anaphylaxis Verified 03/05/22 19:51 lactose Allergy Unknown Verified 03/07/22 09:13 - MEDICATIONS Home Medications: Ambulatory Orders Medication Instructions Recorded Confirmed Cetirizine [ZyrTEC] 10 mg PO DAILY 03/06/22 03/06/22 Donepezil [Aricept] 5 mg PO QPM 03/06/22 03/06/22 Escitalopram Oxalate [Lexapro] 5 mg PO DAILY 03/06/22 03/06/22 Gabapentin [Neurontin] 100 mg PO BID 03/06/22 03/06/22 Pantoprazole [Protonix] 40 mg PO DAILY 03/06/22 03/06/22 Risperidone [Risperdal] 1 mg PO QPM 03/06/22 03/06/22 risperiDONE [RisperDAL] 0.25 mg PO QPM 03/06/22 03/06/22 Apixaban [Eliquis] 5 mg PO BID 30 Days #60 tablet 03/08/22 Apixaban [Eliquis] 10 mg PO BID 7 Days #28 tablet 03/08/22 Docusate Sodium 100Mg Capsule 100 mg PO DAILY 03/08/22 [Colace 100Mg Capsule] - PHYSICAL EXAM AT DISCHARGE General Appearance: positive: No acute distress, Alert Eyes Bilateral: positive: Normal inspection. negative: Conjunctivae nml ENT: positive: ENT inspection nml Neck: positive: Nml inspection Respiratory: positive: No respiratory distress. negative: Wheezes, Rales Cardiovascular: positive: Regular rate & rhythm, No murmur. negative: Tachycardia Abdomen: positive: Non-tender, Nml bowel sounds, No distention. negative: Guarding, Rebound Skin: positive: Warm, Dry Extremities: positive: No pedal edema. negative: Calf tenderness Neurologic/Psychiatric: positive: Disoriented to time, Other (No focal deficits. ). negative: Disoriented to person Physical Exam Other/Comments: Vital Signs - 24 hr 03/07/22 03/07/22 03/08/22 21:08 23:59 05:00 Temperature 36.6 C 36.5 C 36.3 C L Heart Rate Heart Rate [ 77 81 87 Brachial] Respiratory 16 17 18 Rate Blood Pressure 106/60 103/63 103/56 L [Right Brachial artery] O2 Saturation 92 92 95 03/08/22 03/08/22 03/08/22 07:22 11:38 13:34 Temperature 36.5 C 36.6 C Heart Rate 84 Heart Rate [ 76 75 Brachial] Respiratory 16 18 Rate Blood Pressure 108/65 101/63 [Right Brachial artery] O2 Saturation 92 95 Oxygen O2 Source Room air - LABS Result Diagrams: 03/08/22 04:16 03/08/22 04:16 - FOLLOW UP Follow Up: Her daughter will be setting up an outpatient follow-up for the patient as she had just moved to the [place] and has not established care. I recommend that she follow-up within the next 1 to 2 weeks. - TIME SPENT Time Spent in Discharge (Minutes): 32
[2022-03-08 13:35] VITALS: BP 101/63
== END 2022-03-08 14:42 | disposition home or self-care (01) | DRG 176 ==
LOC: ED 19:45 → MS2 03-06 00:24
PROVIDERS: ADMIT Internal Medicine; ATTEND Internal Medicine
DX: I26.99 Other pulmonary embolism without acute cor pulmonale (principal); I82.402 Acute embolism and thrombosis of unspecified deep veins of left lower extremity; I49.9 Cardiac arrhythmia, unspecified; I48.91 Unspecified atrial fibrillation; R77.8 Other specified abnormalities of plasma proteins; F03.90 Unspecified dementia, unspecified severity, without behavioral disturbance, psychotic disturbance, mood disturbance, and anxiety; Z20.822 Contact with and (suspected) exposure to COVID-19; G62.9 Polyneuropathy, unspecified; I51.9 Heart disease, unspecified; K21.9 Gastro-esophageal reflux disease without esophagitis; R32 Unspecified urinary incontinence; R09.02 Hypoxemia; R00.0 Tachycardia, unspecified; K59.00 Constipation, unspecified; M19.90 Unspecified osteoarthritis, unspecified site; I27.81 Cor pulmonale (chronic); E86.9 Volume depletion, unspecified
CPT/HCPCS: 36415; 71045; 71275; 74018; 80048; 80053; 83690; 83735; 83880; 84443; 84484; 85025; 85027; 85379; 85730; 87635; 93005; 93970; 94761; 96365; 96376; 97161; 99285; 99291; A9270; J1650; Q9967; 85520

== ENCOUNTER 2023-01-15 16:18 | Emergency (ER) | payer MEDICARE, OTHER ==
[2023-01-15 16:25] VITALS: BP 125/62
--- NOTE | 2023-01-15 16:45 | ED Physician Documentation ---
History of Present Illness - Stated complaint Stated Complaint: ABD PX - Chief complaint Chief Complaint: Abd Pain - History obtained from History obtained from: Patient, Caregiver - History of Present Illness Timing: Today - Additonal information Additional information: Patient is an 83-year-old female who lives in the memory care facility. Reportedly today she was seen by STACIE Amador. Upon palpation of her abdomen, a mass was noted in the lower abdomen. No vomiting. Patient had a large bowel movement prior to leaving the facility to come here. No fevers. The mass had not been noted before. It seemed tender to the touch, but given the patient's dementia difficult to obtain any significant history. Review of Systems Unable to obtain: Dementia PD PAST MEDICAL HISTORY - Past Medical History Past Medical History: Yes Cardiovascular: Deep vein thrombosis Respiratory: None Neuro: Dementia, Peripheral neuropathy Endocrine/Autoimmune: None GI: GERD SENIOR HYDROGEOLOGIST: None : Incontinence HEENT: None Psych: Depression, Anxiety, Schizophrenia Musculoskeletal: Osteoarthritis Derm: None - Past Surgical History Past Surgical History: Yes General: Colonoscopy, EGD Ortho: Other - Present Medications Home Medications: Ambulatory Orders Medication Instructions Recorded Confirmed Cetirizine [ZyrTEC] 10 mg PO DAILY 03/06/22 03/06/22 Donepezil [Aricept] 5 mg PO QPM 03/06/22 03/06/22 Escitalopram Oxalate [Lexapro] 5 mg PO DAILY 03/06/22 03/06/22 Gabapentin [Neurontin] 100 mg PO BID 03/06/22 03/06/22 Pantoprazole [Protonix] 40 mg PO DAILY 03/06/22 03/06/22 Risperidone [Risperdal] 1 mg PO QPM 03/06/22 03/06/22 risperiDONE [RisperDAL] 0.25 mg PO QPM 03/06/22 03/06/22 Apixaban [Eliquis] 5 mg PO BID 30 Days #60 tablet 03/08/22 Apixaban [Eliquis] 10 mg PO BID 7 Days #28 tablet 03/08/22 Docusate Sodium 100Mg Capsule 100 mg PO DAILY 03/08/22 [Colace 100Mg Capsule] - Allergies Allergies/Adverse Reactions: Allergies Allergy/AdvReac Type Severity Reaction Status Date / Time aspirin Allergy Anaphylaxis Verified 03/05/22 19:51 lactose Allergy Unknown Verified 03/07/22 09:13 - Social History Does the pt smoke?: No Smoking Status: Never smoker - POLST Patient has POLST: No PD ED PE NORMAL - Vitals Vital signs reviewed: Yes - General General: No acute distress, Other (alert, pleasant) - HEENT HEENT: Moist mucous membranes - Neck Neck: Supple, no meningeal sign - Cardiac Cardiac: RRR - Respiratory Respiratory: No respiratory distress, Clear bilaterally - Abdomen Abdomen: Soft, Other (Large palpable mass to the left lower quadrant and suprapubic area. Palpates approximately 12 x 12 cm. Firm) - Derm Derm: Warm and dry - Extremities Extremities: No edema - Neuro Neuro: Other (alert, pleasant. dementia) Results - Vitals Vitals: Vital Signs - 24 hr 01/15/23 16:20 Temperature 36.5 C Heart Rate 71 Respiratory 16 Rate Blood Pressure 125/62 O2 Saturation 95 Oxygen O2 Source Room air - Labs Labs: Laboratory Tests 01/15/23 01/15/23 01/15/23 16:44 16:44 16:44 WBC 7.1 RBC 4.36 Hgb 12.3 Hct 39.2 MCV 89.9 MCH 28.2 MCHC 31.4 L RDW 14.6 Plt Count 327 MPV 8.7 Neut # (Auto) 4.3 Lymph # (Auto) 2.1 Ida # (Auto) 0.6 Eos # (Auto) 0.2 Baso # (Auto) 0.0 Absolute Nucleated RBC 0.00 Nucleated RBC % 0.0 Sodium 137 Potassium 4.0 Chloride 103 Carbon Dioxide 24 Anion Gap 10.0 BUN 19 Creatinine 0.7 Estimated GFR (MDRD) 80 L Glucose 105 H Calcium 8.6 Total Bilirubin 0.4 AST 13 ALT 12 Alkaline Phosphatase 67 Total Protein 7.8 Albumin 3.6 Globulin 4.2 Albumin/Globulin Ratio 0.9 L Lipase 32 CA 125 Antigen 208.5 H - Rads (name of study) CT abd/pelvis Relevant Findings:: Final report received, See rad report PD Medical Decision Making - ED course Complexity details: reviewed results, re-evaluated patient, considered differential, d/w patient, d/w family (Daughter) ED course: CBC and chemistry did not show any significant abnormalities. Her CA 125 is elevated at 208.5 83-year-old female with a large predominantly cystic mass in the central abdomen that appears to arise from the left adnexa. Up to 17 cm in size. CA 125 elevated. This is likely consistent with ovarian cancer. We will have the patient follow-up with gynecology oncology and follow-up with her P CP for referral. Findings were discussed with the patient's daughter over the phone. Patient has significant dementia and so is unable to remember the findings. It was also discussed with her caregiver at bedside. This document was made in part using voice recognition software. While efforts are made to proofread this document, sound alike and grammatical errors may occur. IMPRESSION: 1.Large predominantly cystic mass is seen filling the central abdomen measuring up to 17.3 cm in greatest extent. 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 2.Indeterminant cystic lesion in the right hepatic lobe measuring up to 5.2 cm, which is stable in size when compared to the CTA from 03/05/2022. 3.Moderate hiatal hernia. Colonic diverticulosis without signs of acute diverticulitis. 4.Chronic appearing compression fractures at T12-L2. Postsurgical changes in the lumbar spine from L3 through L5. Departure - Departure Disposition: 01 Home, Self Care Clinical Impression: Ovarian cystic mass Qualifiers: Laterality: left Qualified Code(s): N83.202 - Unspecified ovarian cyst, left side Condition: Good Instructions: Cancer Ovary Dc Follow-Up: IDALIA AMADOR ARNP [Primary Care Provider] - Kim Griffiths MD [Physician No Access] - Damari Oliveira MD [Physician No Access] - Comments: You have a large cystic mass in your left ovary, it measures approximately 17 x 15 x 14 cm. Your CA 125, which is a marker for ovarian cancer is also elevated at 208.5. This likely represents ovarian cancer. Your doctor will likely want to refer you to gynecology oncology for further care, Dr. Griffiths is a gynecology oncologist at [facility] in [place]. Please return if you worsen. Call STACIE Amador in the morning for follow up. ABDOMEN: Lung bases: Mild atelectasis in the lung bases. Heart size is normal. Moderate hiatal hernia. Solid organs: Liver and spleen are normal in size and enhancement. A circumscr ibed 5.2 cm lesion in the right hepatic lobe demonstrates indeterminant attenuation values, but is most likely a cyst. Gallbladder is unremarkable. Biliary system is non dilated. Pancreas enhances n ormally. No adrenal nodules. Kidneys demonstrate normal size and enhancement, without hydronephrosis. A few small hypoattenuating lesions in the kidneys are too small to characterize but most likely represent cysts. Peritoneum and bowel: Scattered diverticula are seen in the colon without signs of acute diverticulitis. No signs of small bowel obstruction. Moderate hiatal hernia. No free fluid or air. Nodes and vessels: No retroperitoneal or mesenteric adenopathy by size criteria. Aorta and inferior vena cava are normal in size. Miscellaneous: Small fat-containing periumbilical hernia. PELVIS: Genitourinary: Bladder wall thickness is normal. Large hyperattenuating mass is seen finding the majority of the central abdomen measuring approximately 17.3 x 15.5 x 13.9 cm. The mass closely abuts the dorsal aspect of the uterus. A probable solid component is seen anterosuperiorly measuring approximately 6.2 x 2.4 x 2.1 cm. The right ovary is normal in size for age. The left ovary is well- visualized and the mass may be of left ovarian origin. Miscellaneous: No inguinal hernias or adenopathy. Bones: No suspicious bony lesions. No vertebral body compression fractures. Pos tsurgical changes are seen in the lumbar spine. Probable prior removal of the left L4 pedicle screw. Calcified material is seen in the left paraspinous region at the L4 level. Multilevel degenerative changes are seen in the spine. Mild to moderate compression fractures are seen at T12-L2, likely not significantly changed compared to the radiographs from 03/08/2022. IMPRESSION: 1.Large predominantly cystic mass is seen filling the central abdomen measuring up to 17.3 cm in greatest extent. 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 2.Indeterminant cystic lesion in the right hepatic lobe measuring up to 5.2 cm, which is stable in size when compared to the CTA from 03/05/2022. 3.Moderate hiatal hernia. Colonic diverticulosis without signs of acute diverticulitis. 4.Chronic appearing compression fractures at T12-L2. Postsurgical changes in the lumbar spine from L3 through L5. Discharge Date/Time: 01/15/23 19:01
[2023-01-15 16:49] LABS: BASOPHILS % (AUTO) 0.4 %; EOSINOPHILS # (AUTO) 0.2 10^3/uL (0.0-0.7); EOSINOPHILS % (AUTO) 2.7 %; HCT - HEMATOCRIT 39.2 % (37.0-47.0); HGB - HEMOGLOBIN 12.3 g/dL (12.0-16.0); LYMPHOCYTES # (AUTO) 2.1 10^3/uL (1.5-3.5); MEAN CORPUSCULAR HEMOGLOBIN 28.2 pg (27.0-31.0); MEAN CORPUSCULAR HGB CONC 31.4 g/dL (32.0-36.0); MEAN CORPUSCULAR VOLUME 89.9 fL (81.0-99.0); MEAN PLATELET VOLUME 8.7 fL (7.9-10.8); MONOCYTES # (AUTO) 0.6 10^3/uL (0.0-1.0); MONOCYTES % (AUTO) 7.8 %; NEUTROPHILS # (AUTO) 4.3 10^3/uL (1.5-6.6); PLT - PLATELET COUNT 327 10^3/uL (130-450); RED BLOOD COUNT 4.36 10^6/uL (4.20-5.40); RED CELL DISTRIBUTION WIDTH 14.6 % (12.0-15.0); WHITE BLOOD COUNT 7.1 x10^3/uL (4.8-10.8)
[2023-01-15 17:00] LABS: ALBUMIN 3.6 g/dL (3.2-5.5); ALBUMIN/GLOBULIN RATIO 0.9 (1.0-2.2); BILIRUBIN,TOTAL 0.4 mg/dL (0.2-1.0); CALCIUM 8.6 mg/dL (8.5-10.3); CREATININE 0.7 mg/dL (0.4-1.0); TOTAL PROTEIN 7.8 g/dL (6.7-8.2)
[2023-01-15] MEDS ORDERED: iohexoL-300 100 ML VIAL ONE (17:07)
--- NOTE | 2023-01-15 17:55 | CT Report ---
PROCEDURE: ABDOMEN/PELVIS W INDICATIONS: LLQ abd pain/mass CONTRAST: 100mL Omni 300 TECHNIQUE: After the administration of intravenous contrast, 5 mm thick sections acquired from the diaphragms to the symphysis. 5 mm thick coronal and sagittal reformats were acquired. For radiation dose reducti on, the following was used: automated exposure control, adjustment of mA and/or kV according to reba ent size. COMPARISON: Abdomen radiographs 03/08/2022, CTA chest 03/05/2022 FINDINGS: Image quality: Excellent. ABDOMEN: Lung bases: Mild atelectasis in the lung bases. Heart size is normal. Moderate hiatal hernia. Solid organs: Liver and spleen are normal in size and enhancement. A circumscribed 5.2 cm lesion in the right hepatic lobe demonstrates indeterminant attenuation values, but is most likely a cyst. Gal lbladder is unremarkable. Biliary system is non dilated. Pancreas enhances normally. No adrenal no dules. Kidneys demonstrate normal size and enhancement, without hydronephrosis. A few small hypoatte nuating lesions in the kidneys are too small to characterize but most likely represent cysts. Peritoneum and bowel: Scattered diverticula are seen in the colon without signs of acute diverticuli tis. No signs of small bowel obstruction. Moderate hiatal hernia. No free fluid or air. Nodes and vessels: No retroperitoneal or mesenteric adenopathy by size criteria. Aorta and inferior vena cava are normal in size. Miscellaneous: Small fat-containing periumbilical hernia. PELVIS: Genitourinary: Bladder wall thickness is normal. Large hyperattenuating mass is seen [facility] abdomen measuring approximately 17.3 x 15.5 x 13.9 cm. The mass closely abuts [facility] dorsal aspect of the uterus. A probable solid component is seen anterosuperiorly measuring approxi mately 6.2 x 2.4 x 2.1 cm. The right ovary is normal in size for age. The left ovary is well-visualiz ed and the mass may be of left ovarian origin. Miscellaneous: No inguinal hernias or adenopathy. Bones: No suspicious bony lesions. No vertebral body compression fractures. Postsurgical changes a re seen in the lumbar spine. Probable prior removal of the left L4 pedicle screw. Calcified material is seen in the left paraspinous region at the L4 level. Multilevel degenerative changes are seen in t he spine. Mild to moderate compression fractures are seen at T12-L2, likely not significantly changed compared to the radiographs from 03/08/2022. IMPRESSION: 1.Large predominantly cystic mass is seen filling the central abdomen measuring up to 17.3 cm in grea test extent. 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 2.Indeterminant cystic lesion in the right hepatic lobe measuring up to 5.2 cm, which is stable in si ze when compared to the CTA from 03/05/2022. 3.Moderate hiatal hernia. Colonic diverticulosis without signs of acute diverticulitis. 4.Chronic appearing compression fractures at T12-L2. Postsurgical changes in the lumbar spine from L3 through L5. Reviewed by: Serafin Villanueva MD on 01/15/2023 5:54 PM PDT Approved by: Serafin Villanueva MD on 01/15/2023 5:54 PM PDT Station ID: [id number]
[2023-01-15] MEDS ORDERED: iohexoL-300 100 ML VIAL IVP ONE (18:52)
== END 2023-01-15 19:01 | disposition home or self-care (01) ==
LOC: ED 16:18
DX: N83.202 Unspecified ovarian cyst, left side (principal)
CPT/HCPCS: 36415; 74177; 80053; 83690; 85025; 86304; 99284; Q9967